=== PATIENT | male | born 1925 | race Caucasian/White ===

== ENCOUNTER → 2016-09-01 | Outpatient (CLI) | payer OTHER ==
[2016-09-03 13:32] LABS: FREE PSA/PSA RATIO SEE COMMENTS ratio (())
== END ==
LOC: MOB LAB 09:59
PROVIDERS: ATTEND Urology
DX: C61 Malignant neoplasm of prostate (principal)
CPT/HCPCS: 36415; 84153; 84154

== ENCOUNTER → 2016-09-21 | Outpatient (CLI) | payer OTHER | LOC: MMPC 11:11 | PROVIDERS: ATTEND Physician Assistant | DX: M54.5 Low back pain (principal) | CPT/HCPCS: 99213; G0463 ==

== ENCOUNTER → 2016-10-28 | Outpatient (CLI) | payer OTHER ==
--- NOTE | 2016-10-28 13:01 | DI ---
XR L-SPINE 2-3 VW,10/28/2016 9:17 AM: Clinical History: Low back pain Previous Exam: None at this facility. Findings: 3 views of the lumbar spine are obtained, and demonstrate a compression fracture involving the first lumbar vertebral body. There is greater than 50% compression. There is some anterior wedging of the 1 2th thoracic vertebral body as well which is not well evaluated on this exam. Mild facet hypertrophy. Peripheral vascular calcifications are seen within the aorta. A nonobstructive bowel gas pattern is seen. There are no pathologic calcifications. Impression: 1. Diffuse osteopenia with a compression fracture of the first lumbar vertebral body. Correlate with history. If this is an acute fracture, the patient may be a candidate for vertebroplasty.
== END ==
LOC: MOB RAD 09:24
PROVIDERS: ATTEND Internal Medicine
DX: M54.5 Low back pain (principal); M48.56XA Collapsed vertebra, not elsewhere classified, lumbar region, initial encounter for fracture; M47.816 Spondylosis without myelopathy or radiculopathy, lumbar region
CPT/HCPCS: 72100